=== PATIENT | male | born 1970 | race Caucasian/White ===

== ENCOUNTER → 2016-10-20 | Day surgery (SDC) | payer OTHER ==
[~2016-10-20] MED LIST: BUPIVACAINE HCL PF 0.25% 30 ML VIAL ONE; KETOROLAC TROMETHAMINE 30 MG/ML (IVP) VIAL IV PUSH ONE; LACTATED RINGER'S 1000 ML INJ 1,000 ML ONE; LIDOCAINE HCL 1% 50 ML VIAL ONE; MIDAZOLAM HCL 2 MG/2 ML VIAL ONE; NEOMYCIN/POLYMYXIN/BACITRACIN OINT 15 GM TUBE ONE; ONDANSETRON HCL 4 MG/2 ML VIAL IV PUSH ONE; PROPOFOL 200 MG/20 ML AMP IV ONE; ceFAZolin INJ 1,000 MG VIAL ONE
--- NOTE | 2016-10-20 11:04 | TN ---
cc: APOLLO YATES M.D. DATE OF SURGERY 10/20/2016 PREOPERATIVE DIAGNOSIS Left hydrocele POSTOPERATIVE DIAGNOSIS Left spermatocele (ICD-10 code N43.4) PROCEDURE Left spermatocelectomy (CPT code 80415) INDICATIONS Mr. Lovett is a 46-year-old gentleman with a symptomatic fluid-filled sac in the left hemiscrotum which clinically was suspicious for a spermatocele, but under ultrasonography was thought to be a hydrocele. He presents now for definitive treatment. Findings were this fluid-filled sac was actually a spermatocele and not a hydrocele. There was a significant amount of scarring and vascularity to the process. PROCEDURE The procedure as well as risks and benefits were explained to the patient and an informed consent was obtained. The patient was taken to the major operative theater where he was placed in supine position. The patient was identified, as well as the operative site. A universal time-out was performed in standard fashion. At this time, general anesthetic and prophylactic intravenous antibiotics consisting of Ancef one gram were administered. After adequate anesthetic, the genitalia and groin were prepped and draped in the usual sterile fashion. At this time, a 1% lidocaine plain and a 0.25% Marcaine plain solution was used to inject the skin and subcutaneous tissue. At this time, a several centimeter transverse incision was made over the left hemiscrotum especially in the mid hemiscrotum. This was taken down through the subcutaneous tissue and dartos using electrocautery. Meticulous hemostasis was achieved throughout the case using electrocautery and there was a larger vessel that was clipped with small titanium clips at one point. At this time after reaching the tunica, it was dissected out and delivered into the wound and it was obvious at that time that this appeared to be a large spermatocele. The tunica of the spermatocele was then opened up anteriorly to drain a few 100 cc of cloudy fluid. The excess sac was resected and removed and the communication between the epididymis and the spermatocele was identified and suture ligated with 3-0 Vicryl suture. Care was taken not to damage the testicle or the vascular structures and vas. At this time, the edges of the tunica was oversewn with a 3-0 Vicryl suture also and then meticulous hemostasis was confirmed with electrocautery. The wound was then irrigated with sterile water. At this time, the testicle was placed back into the scrotum in its proper orientation. Care was taken not to twist the cord structures and then the dartos fascia was closed with a 3-0 Vicryl suture in a running pattern. The skin edges were closed with 3-0 Vicryl suture and an interrupted vertical mattress fashion. Polysporin ointment and dry dressings and fluffs were applied, as well as a scrotal support. There were no obvious complications. Sponge and needle counts were correct at the end of the case. The patient emerged from anesthetic, was transferred to the recovery room in stable condition to be discharged home when criteria is met. MD EMORY South/JUAN /10:41 AM /10:56 AM
== END | disposition home or self-care (01) ==
LOC: ESDC 07:27
PROVIDERS: ATTEND Urology
DX: N43.40 Spermatocele of epididymis, unspecified (principal)
CPT/HCPCS: 00920; 54840; J0690; J1885; J2250; J2405; J3010; J7120